=== PATIENT | male | born 1950 | race Caucasian/White ===

== ENCOUNTER → 2024-07-31 | Day surgery (SDC) | payer MEDICARE, BC ==
[~2024-07-31] MED LIST: ACETAMINOPHEN 1000 MG/100 ML 100 ML IV ONE; ASPIRIN81 MG PO; CELEXA20 MG PO; CENTRUM SILVER1 EAC4; DEXAMETHASONE SOD PHOS INJ 4 MG/ML SDV ONE; FENTANYL CITRATE/PF 100MCG/2 ML INJ ONE; LIDOCAINE HCL 2% LOCAL INJ 5 ML SDV VIAL INJ ONE; LIPITOR20 MG PO; OMEPRAZOLE40 MG PO; ONDANSETRON HCL INJ 2MG/ML 2ML 2 MG/ML VIAL ONE; PROPOFOL IV EMULSION 10 MG/ML 20 ML VIAL ONE; ZOLPIDEM TARTRAT5 MG PO; ZYRTEC10 M3
[2024-07-31] MEDS: LACTATED RINGER'S 1,000 ML ONE (09:53)
[2024-07-31 12:49] VITALS: TEMP 97.8
[2024-07-31 13:40] VITALS: BP 140/90; PULSE 67; RESP 16; O2SAT 95
== END | disposition home or self-care (01) ==
LOC: OR 08:56
PROVIDERS: ATTEND Podiatrist
DX: M20.41 Other hammer toe(s) (acquired), right foot (principal); G47.33 Obstructive sleep apnea (adult) (pediatric); C83.10 Mantle cell lymphoma, unspecified site; G25.81 Restless legs syndrome; E78.5 Hyperlipidemia, unspecified; K21.9 Gastro-esophageal reflux disease without esophagitis; F41.9 Anxiety disorder, unspecified; F32.A Depression, unspecified; Z79.82 Long term (current) use of aspirin; Z79.899 Other long term (current) drug therapy; Z87.891 Personal history of nicotine dependence
CPT/HCPCS: 28285; 71046; 93005; J0131; J0690; J1100; J2003; J2405; J2704; J3010; J7121